=== PATIENT | female | born 1955 ===

== ENCOUNTER 2020-09-03 08:27 | Day surgery (SDC) | payer OTHER ==
[~2020-09-03 08:27] MED LIST: AVAPRO150 MG PO; LEVOTHYROXINE25 MCG PO; LIPITOR40 MG PO; NORVASC5 MG PO
[2020-09-03] MEDS ORDERED: ULTRACET PO (12:06)
== END 2020-09-03 17:30 | disposition home or self-care (01) ==
LOC: CIR.AMB 08:27
PROVIDERS: ATTEND Obstetrics & Gynecology Gynecology
DX: N31.8 Other neuromuscular dysfunction of bladder (principal); Z20.822 Contact with and (suspected) exposure to COVID-19